=== PATIENT | female | born 1990 | race Asian ===

== ENCOUNTER 2018-11-02 09:39 | Emergency (ER) | payer OTHER ==
[~2018-11-02] VITALS: Ht 157.5 cm; Wt 89.0 kg
[2018-11-02 09:41] VITALS: BP 127/67; PULSE 97; RESP 18; Ht 157.5 cm; Wt 89.0 kg
[2018-11-02] MEDS ORDERED: KETOROLAC 30 MG INJ IM STA (10:31)
[2018-11-02] MEDS ORDERED: IBUP-1542 PO (10:46)
--- NOTE | 2018-11-02 10:58 | ERD ---
ER Documentation Chief Complaint Chief Complaint RIGHT LEG PAIN AFTER A FALL HPI Patient is a 28-year-old female presented to ED for right knee pain. Patient states that Bill night she was drinking alcohol and was walking down the stairs and twisted her knee. Patient did not fall did not lose consciousness and can recall the entire event. Patient states that she has had pain in the last 2 days and has difficulty extending her right knee or bearing weight on it. Patient denies any allergies to medications but states she has a history of eczema and depression. Patient denies any homicidal or suicidal ideation and states that she is under treatment of a specialist for depression. Patient denies being . And states the pain is a 6 out of 10 and worsens when she tries to ambulate. ROS All systems reviewed and are negative except as per history of present illness. Medications Home Meds Active Scripts Ibuprofen* (Motrin*) 600 Mg Tab, 600 MG PO Q6, #30 TAB Prov:ЕЛЕНА ADORNO PA-C 11/02/18 Allergies Allergies: Coded Allergies: No Known Allergy (Unverified , 11/02/18) PMhx/Soc Medical and Surgical Hx: pt denies Medical Hx, pt denies Surgical Hx Hx Alcohol Use: Yes (SOCIALLY) Hx Substance Use: No Hx Tobacco Use: Yes Smoking Status: Current every day smoker FmHx Family History: No diabetes, No coronary disease, No other Physical Exam Vitals Vital Signs Date Temp Pulse Resp B/P (MAP) Pulse Ox O2 O2 Flow FiO2 Time Delivery Rate 11/02/18 98.1 97 18 127/67 99 09:41 (87) Physical Exam Const: No acute distress Resp: Clear to auscultation bilaterally Cardio: Regular rate and rhythm, no murmurs Abd: Soft, non tender, non distended. Normal bowel sounds Skin: No petechiae or rashes Back: No midline or flank tenderness Ext: No cyanosis, or edema, RLE anterior drawer test negative, posterior drawer test negative valgus valgus negative, no signs of deformities contusions abrasions. She has good pulse motor sensation Psych: Normal Mood and Affect Results 24 hrs Laboratory Tests Test 11/02/18 10:40 11/02/18 10:42 POC Beta HCG, Qualitative NEGATIVE Bedside Urine pH (LAB) 5.5 Bedside Urine Protein (LAB) Trace Bedside Urine Glucose (UA) Negative Bedside Urine Ketones (LAB) Negative Bedside Urine Blood 3+ Bedside Urine Nitrite (LAB) Negative Bedside Urine Leukocyte Esterase (L Negative Current Medications Medications Dose Sig/North Start Time Status Last (Trade) Ordered Route PRN Stop Time Admin Dose Reason Admin Ketorolac 30 mg ONCE STAT 11/02/18 DC 11/02/18 Tromethamine IM 10:31 10:43 (Toradol) 11/02/18 10:33 Procedures/MDM Diagnostic imaging: Read by radiologist Lino Dumont MD PROCEDURE: RIGHT knee x-ray CLINICAL INDICATION: fall and twist knee TECHNIQUE: AP, lateral and tunnel views of the knee were obtained. COMPARISON: None FINDINGS: There is normal mineralization. No acute fracture or dislocation is seen. There is no joint effusion. There are no significant degenerative changes. There is no significant soft tissue swelling. IMPRESSION: Normal x-ray of the right knee. Procedures: SPLINT APPLICATION: The patient was verbally consented at bedside prior to splint application. Patient was explained the risks, benefits and alternatives to this procedure. The patient was neurovascularly intact prior to and status post application of the splint. The patient tolerated the procedure well with no complications. Splint type: Knee immobilizer Extremity: Right lower extremity Indication: Fall with twisting motion unable to ambulate without pain. I discussed with the patient/family that at anytime if the splint becomes too constricted or if they have loss of sensation, or unable to move any limbs di stal to the splint, develop fever, or any discomfort that they should eturn to the ER immdiatly. I educated the patient on risk of compartment syndrome with splint applications. Medications given in ER: Toradol Patient tolerated medication well with no adverse reactions. Patient reported improvement in pain. Medical decision makin-year-old female presenting for right knee pain secondary to a fall with twisting motion to her right knee that happened Saturday. Patient was drinking alcohol at the time of the injury. Patient did not hit her head did not lose consciousness denies any blurry vision neck pain. Patient has good pulse motor sensation in the extremity and physical exam showed limited range of motion in the right lower extremity no pain to palpation to the tibia, ankle, foot, hip. Patient is unable to ambulate without pain. Urine and urine dip was done. Patient's urine was negative but patient had some hematuria. Patient states that she is currently on her menstrual cycle. Patient was given Toradol injection and sent for x-ray of the right lower extremity. At this time I have low suspicion for fracture, dislocation, osteomyelitis, compartment syndrome. Advised the patient she may have a ligament injury and that she needs to follow-up with her primary care provider or orthopedic for further evaluation and treatment. Patient is can be discharged home with prescription for Motrin, crutches, knee immobilizer. A post examination was done after the knee immobilizer was applied the patient showed no deficits in her neurovascular exam. The system technologist demonstrated proper crutch use with the patient. patient reports improvement in pain and comfort. patient is agreement the treatment plan and had no further questions upon discharge. Prescription for home: Motrin I have discussed with the patient proper use and common side effects to expert with the medication . I advised the patient/family to speak with the pharmacist dispensing the medication to be advised of any potential drug interactions with other medication or supplements they may be taking. Discharge: At this time, patient is stable for discharge and outpatient management. I have instructed the patient to follow-up with his\her primary care physician in 1 to 2 days. I have discussed with the patient the possibility of needing to see a specialist for further work-up and imaging studies if symptoms persist. I have instructed the patient to promptly return to the ER for any new or worsening symptoms including increased pain, fever, nausea, vomiting, weakness or LOC. The patient and\or family expressed understanding of and agreement with this plan. All questions were answered. Home care instructions were provided. Disclaimer: Inadvertent spelling and grammatical errors are likely due to EHR\dictation software use and do not reflect on the overall quality of patient care. Also, please note that the electronic time recorded on the note does not necessarily reflect the actual time of the patient encounter. Departure Diagnosis: Primary Impression: Pain of right leg Additional Impression: Sprain of right knee Encounter type: initial encounter Involved ligament of knee: unspecified ligament Qualified Codes: S83.91XA - Sprain of unspecified site of right knee, initial encounter Condition: Stable Patient Instructions: Knee Sprain Referrals: JUNO BEGUM YOON S MD [facility] YOU HAVE RECEIVED A MEDICAL SCREENING EXAM AND THE RESULTS INDICATE THAT YOU DO NOT HAVE A CONDITION THAT REQUIRES URGENT TREATMENT IN THE EMERGENCY DEPARTMENT. FURTHER EVALUATION AND TREATMENT OF YOUR CONDITION CAN WAIT UNTIL YOU ARE SEEN IN YOUR DOCTORS OFFICE WITHIN THE NEXT 1-2 DAYS. IT IS YOUR RESPONSIBILITY TO MAKE AN APPOINTMENT FOR FOLOW-UP CARE. IF YOU HAVE A PRIMARY DOCTOR --you should call your primary doctor and schedule an appointment IF YOU DO NOT HAVE A PRIMARY DOCTOR YOU CAN CALL OUR PHYSICIAN REFERRAL HOTLINE AT IF YOU CAN NOT AFFORD TO SEE A PHYSICIAN YOU CAN CHOSE FROM THE FOLLOWING [facility] [address] [facility] [address] [facility] [address] [facility] [address] [facility] [facility] [address] [facility]. [facility] [address] [facility] [facility] YOU HAVE RECEIVED A MEDICAL SCREENING EXAM AND THE RESULTS INDICATE THAT YOU DO NOT HAVE A CONDITION THAT REQUIRES URGENT TREATMENT IN THE EMERGENCY DEPARTMENT. FURTHER EVALUATION AND TREATMENT OF YOUR CONDITION CAN WAIT UNTIL YOU ARE SEEN IN YOUR DOCTORS OFFICE WITHIN THE NEXT 1-2 DAYS. IT IS YOUR RESPONSIBILITY TO MAKE AN APPOINTMENT FOR FOLOW-UP CARE. IF YOU HAVE A PRIMARY DOCTOR --you should call your primary doctor and schedule and appointment IF YOU DO NOT HAVE A PRIMARY DOCTOR YOU CAN CALL OUR PHYSICIAN REFERRAL HOTLINE AT . IF YOU CAN NOT AFFORD TO SEE A PHYSICIAN YOU CAN CHOSE FROM THE FOLLOWING [facility] INSTITUTIONS: [facility] [address] [place] [address] [facility] [address] [place] [address] [facility] [address] [place] [address] Additional Instructions: Return to this facility in 2 DAYS for a follow-up exam.Return sooner if your condition worsens. ЕЛЕНА ADORNO PA-C Nov 02, 2018 10:58
== END 2018-11-02 12:13 | disposition home or self-care (01) ==
LOC: FTE 09:39
DX: S83.91XA Sprain of unspecified site of right knee, initial encounter (principal); F17.210 Nicotine dependence, cigarettes, uncomplicated; X50.1XXA Overexertion from prolonged static or awkward postures, initial encounter; Y92.9 Unspecified place or not applicable
CPT/HCPCS: 29505; 73562; 81003; 81025; 96372; J1885; Z7502